=== PATIENT | female | born 2000 | race Caucasian/White ===

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

== ENCOUNTER 2022-02-14 19:58 | Outpatient (CLI) | payer BC ==
[~2022-02-14] VITALS: Ht 167.6 cm; Wt 78.6 kg
[~2022-02-14 19:58] MED LIST: CEPHALEXIN500 M1 PO
--- NOTE | 2022-02-14 20:00 | NUR ---
1999- PT PRESENTS TO LDR FOR COMPLAINTS OF CONTRACTIONS. TO LR5 PER WHEELCHAIR, CHANGED INTO GOWN. 2003- EFM X2 APPLIED. PT DENIES LEAKING FLUID OR VAGINAL BLEEDING. STATES SHE IS FEELING BABY MOVE. STATES SHE HAS BEEN HAVING SOME CONTRACTIONS FOR THE LAST DAY OR SO, BUT BECAME MORE PAINFUL THIS EVENING. DISCUSSED PLAN OF CARE FOR LABOR CHECK AND QUESTIONS ANSWERED. 2015- SVE BY THIS NURSE 0-09/03/3. PT TOLERATED WELL. DISCUSSED PT DRINKING SOME WATER, WATCHING CTX ON MONITOR AND RECHECKING CERVIX. PT OK WITH THIS PLAN OF CARE. ORAL HYDRATION PROVIDED.
[2022-02-14 20:25] VITALS: BP 129/75; PULSE 63; TEMP 98
--- NOTE | 2022-02-14 20:41 | NUR ---
@2038 RN ASSISTED PT TO THE BATHROOM AND BACK TO THE BED. MALE VISITOR IS AT THE BEDSIDE. PT AAOX4 WITH NO APPARENT SIGN OF DISTRESS. RN GAVE REPORT TO CHARGE NURSE KUN.
--- NOTE | 2022-02-14 21:46 | NUR ---
RECHECK SVE NO CHANGE IN CERVIX. DR HARO NOTIFIED OF PT'S COMPLAINTS, UC'S, NO CERVICAL CHANGE,VS STABLE. ORDERS TO DC TO HOME WITH INSTRUCTIONS TO ORALLY HYDRATE WELL, TYLENOL AND BENEDRYL PRN, PT MAY TAKE WARM SHOWERS. KEEP YOUR NEXT APPOINTMENT SCHEDULED. PT VERBLAIZED UNDERSTANDING. SHE WAS GIVEN VERBAL AND WRITTEN INSTRUCTIONS. ON DISCOMFORTS OF , TO RETURN IF SROM, VAG BLEEDING MORE THAN SPOTTING, REGULAR STRONG UC'S PT VERBALIZED UNDERSTANDING. SHE WAS STABLE AND AMB OFF THE UNIT WITH HER S.O.
== END 2022-02-14 21:45 | disposition home or self-care (01) ==
LOC: LDRO 19:58 → LDR 20:40 → LDRO 21:45
DX: O62.9 Abnormality of forces of labor, unspecified (principal); Z3A.36 36 weeks gestation of pregnancy
CPT/HCPCS: OP

== ENCOUNTER 2022-03-04 09:52 | Inpatient (IN) | payer BC ==
[~2022-03-04] VITALS: Ht 167.6 cm; Wt 80.0 kg
[2022-03-04] VITALS (56 sets, daily range): BP systolic 96–194; BP diastolic 50–87; PULSE 59–101; TEMP 97.6–98.7
--- NOTE | 2022-03-04 10:00 | NUR ---
Admits to L&D for reported SROM @ 0100, clear fluid. Sent over from office for augmentation of labor, as noted patient remains 1 cm dilated per . Patient reports she has had some contractions, but nothing regular. Denies any odor to fluid upon rupture of membranes. Ambulatory to unit, accompanied by significant other. Placed on EFM by GUEVARA Guadalupe.
--- NOTE | 2022-03-04 10:30 | NUR ---
1020- Bedside report from GUEVARA Castaneda. This RN assumes care at this time.
[2022-03-04] MEDS ORDERED: NATURAL IRON65 MG (10:34)
[2022-03-04] MEDS ORDERED: MAGNESIUM250 M1 PO (10:35)
[2022-03-04] MEDS ORDERED: PRENATAL TABLET PO (10:35)
[2022-03-04 10:57] LABS: HEMOGLOBIN 12.8 g/dl (12.5-16.0); MEAN CELL VOLUME 91 fl (80.0-100.0); MEAN CORPUSCULAR HEMOGLOBIN 32 pg (27-31); MEAN CORPUSCULAR HGB CONC 35 g/dl (33.0-37.0); MEAN PLATELET VOLUME 10.2 fl (7.4-10.4); PLATELET COUNT 224 K/mm3 (130-400); RED BLOOD COUNT 4.05 M/mm3 (4.10-5.30); REDCELL DISTRIBUTION WIDTH-CV 13.7 % (11.5-14.5)
[2022-03-04 10:59] LABS: HEMATOCRIT 36.7 % (37.0-47.0)
--- NOTE | 2022-03-04 11:00 | NUR ---
1042- EFM and TOCO off. Pt up to void and ambulate in hallway. Pt and Spouse given tour of unit by this RN. 1059- EFM and TOCO on and tracing. Pt assited onto birthing ball. Pitocin started per policy.
[2022-03-04 11:29] LABS: BAND 3 % (0-10); LYMPHOCYTE 19 % (20.0-51.0); NEUTROPHILS 73 % (42.0-75.2); PLATELET ESTIMATE NORMAL (NORMAL)
--- NOTE | 2022-03-04 12:00 | NUR ---
Pt independently transitions between birthing ball and standing at bedside. UCs not tracing well due to maternal position.
--- NOTE | 2022-03-04 13:45 | NUR ---
1335- Dr Reynolds and this RN at bedside, SVE by , /-2, forebag AROM by MD with amniohook, moderate amount of clear fluid noted. Pt tolerated well.
--- NOTE | 2022-03-04 15:00 | NUR ---
1443- Sridhar.ARIEL Paul at bedside. Pt assisted to sitting on side of bed for epidural placement. O2 sat on and tracing maternal HR. 1451- Test dose, see anesthesia record. 1457- Pt repositioned to LL, O2 sat monitor off. US adjusted.
--- NOTE | 2022-03-04 19:39 | NUR ---
@191 RN and charge GUEVARA Magana reveiwed the strip. 300cc bolus of LR administering IV. @1930 Dr. Ferrell was made aware and 2g Ancef q6 was ordered.
[2022-03-05] VITALS (17 sets, daily range): BP systolic 91–145; BP diastolic 52–80; PULSE 62–86; TEMP 97.8–98.4
--- NOTE | 2022-03-05 03:48 | NUR ---
@0250 RN completed a SVE /+2 @[address] Ferrell to come to the bedside for delivery. @0310 arrived. @0328 baby was delivered.
--- NOTE | 2022-03-05 05:44 | NUR ---
@0540 Patient transferred to via wheelchair and ambulated to the bathroom in her assisgned room to urinate and tolerated it well.
[2022-03-05] MEDS ORDERED: IBU800 M1 PO (08:29)
--- NOTE | 2022-03-05 09:00 | NUR ---
Initial visit; Patient, and family thanked Geophysical Prospecting Permit Agent for offering congratulations and God's blessings for the of their son. Geophysical Prospecting Permit Agent thanked Rin for choosing [facility].
[2022-03-06 00:01] VITALS: BP 108/62; PULSE 72; TEMP 98.2
[2022-03-06 07:30] VITALS: BP 110/70; PULSE 65; TEMP 98.2
--- NOTE | 2022-03-06 11:00 | NUR ---
1100-Reviewed discharge instructions with patient. Denies any questions. Aware of need to follow up at six week visit. 1115-Ambulatory off unit with infant and spouse.
== END 2022-03-06 11:11 | disposition home or self-care (01) | DRG 807 ==
LOC: OB 09:52 → LDR 09:52 → OB 03-05 05:45
PROVIDERS: ADMIT Student in an Organized Health Care Education/Training Program
PROC: 10E0XZZ Delivery of Products of Conception, External Approach (ICD-10-PCS; principal; 2022-03-05)
DX: O99.52 Diseases of the respiratory system complicating childbirth (principal); Z37.0 Single live birth; J45.909 Unspecified asthma, uncomplicated; O99.02 Anemia complicating childbirth; D64.9 Anemia, unspecified; O26.03 Excessive weight gain in pregnancy, third trimester; O35.8XX0 Maternal care for other (suspected) fetal abnormality and damage, not applicable or unspecified; O71.82 Other specified trauma to perineum and vulva; Z3A.39 39 weeks gestation of pregnancy; Z86.16 Personal history of COVID-19
CPT/HCPCS: J0690; J2405; J2590; J7120

== ENCOUNTER 2023-07-16 09:08 | Inpatient (IN) | payer BC ==
[~2023-07-16] VITALS: Ht 167.6 cm; Wt 79.3 kg
[2023-07-16] VITALS (33 sets, daily range): BP systolic 92–152; BP diastolic 51–82; PULSE 56–80; TEMP 97.3–98.2
--- NOTE | 2023-07-16 09:05 | NUR ---
PT AMBULATORY TO UNIT WITH FOB. ORIENTED TO LABOR ROOM AND PLAN OF CARE. DENIES CONTRACTIONS, DENIES LOF/VB, REPORTS POSITIVE MOVEMENT. CATEGORY 1 EFM TRACING UPON ARRIVAL. TOCO TRACING IRREGULAR CONTRACTIONS, MILD WIT PALPATION AND PT DENIES PAIN WITH THEM. UPDATED OF PT ARRIVAL.
[~2023-07-16 09:08] MED LIST changes: +IBU800 M1 PO; +MAGNESIUM250 M1 PO; +MELATONIN5 M1 SL; +NATURAL IRON65 MG; +PRENATAL TABLET PO; +VITAMIN B COMPL1 SGL PO; +VITAMIN D250 MCG PO
[2023-07-16 09:55] LABS: BASO % 0.4 % (0.0-2.0); EOS # 0.1 K/mm3 (0.0-0.7); EOS % 0.5 % (0.0-4.0); GRAN % 74.8 % (42.2-75.2); HEMOGLOBIN 12.5 g/dl (12.5-16.0); LYMPH # 1.5 K/mm3 (1.2-3.4); LYMPH % 15.7 % (20.0-51.0); MEAN CELL VOLUME 91 fl (80.0-100.0); MEAN CORPUSCULAR HEMOGLOBIN 32 pg (27-31); MEAN CORPUSCULAR HGB CONC 35 g/dl (33.0-37.0); MEAN PLATELET VOLUME 10.2 fl (7.4-10.4); MONO # 0.7 K/mm3 (0.1-0.6); MONO % 7.2 % (1.7-9.3); PLATELET COUNT 193 K/mm3 (130-400); RED BLOOD COUNT 3.95 M/mm3 (4.10-5.30); REDCELL DISTRIBUTION WIDTH-CV 13.8 % (11.5-14.5)
[2023-07-16 10:01] LABS: HEMATOCRIT 36.1 % (37.0-47.0)
--- NOTE | 2023-07-16 10:16 | NUR ---
AT BEDSIDE. SVE /-2. AROM @ 1016 WITH CLEAR FLUID PER , PT TOLERATED PROCEDURE WELL.
--- NOTE | 2023-07-16 11:10 | NUR ---
SHELBY TELESCOPE OPERATOR AT BEDSIDE. PT TO SITTING POSITION FOR EPIDURAL PLACEMENT. DIFFICULTY TRACING EFM DUE TO MATERNAL POSITIONING. 1110: TEST DOSE PER SHELBY, PT TOLERATED PROCEDURE WELL. MATERNAL VITAL SIGNS STABEL THROUGHOUT.
--- NOTE | 2023-07-16 11:50 | NUR ---
PT C/O SEVERE LEFT LOWER QUADRANT PAIN WITH CONTRACTIONS FOLLOWING EPIDURAL DOSE AT 1110. TEARFUL AND UNABLE TO BREATHE THROUGH CONTRACTIONS. THIS RN AND PT HAVE PUSHED EPIDURAL PILE DRIVER ENGINEER BUTTON X2, NO RELIEF. SHELBY AT BEDSIDE. REPOSITIONS CATHETER AND ADMINISTERS EXTRA MEDICATION, SEE ANESTHESIA RECORD. PT BEGINS TO FEEL RELIEF. LR BOLUS INFUSING. PT BECOMES HYPOTENSIVE, EPHEDRINE ADMINISTERED X2 BY THIS RN. PT STATES SHE "FEELS LESS LIGHT HEADED AND NAUSEOUS" FOLLOWING EPHEDRINE. PT REPORTS ZERO PAIN WITH CONTRACTIONS AND BEGINS TO FALL ASLEEP. 1230: DELONG PLACED WITH CLEAR YELLOW URINE RETURN. PT PLACED IN LEFT LATERAL POSITION WITH PEANUT BALL TO RECOVER AND REST. DENIES FURTHER NEEDS AT THIS TIME.
--- NOTE | 2023-07-16 15:58 | NUR ---
1558: PT COMPLETE/+2 STATION. UNABLE TO FEEL PRESSURE OR URGE TO PUSH DUE TO RECENT EPIDURAL DOSING. SEE ANESTHESIA RECORD. AND ALL APPROPRIATE STAFF NOTIFIED OF PENDING DELIVERY. 1615: OF VIABLE FEMALE INFANT AT THIS TIME PER . PLACED ON MATERNAL ABDOMEN. CORD CLAMPED X2 UPON COMPLETION OF CORD PULSATION AND CUT BY FOB. CARE OF INFANT ASSUMED BY GUEVARA SÁNCHEZ. STRONG CRY NOTED AT DELIVERY. LOCHIA WNL AT THIS TIME. MATERNAL VITAL SIGNS STABLE. 1619: OF INTACT PLACENTA PER . PITOCIN BOLUS INFUSING. LR BOLUS INFUSING. MODERATE LOCHIA WITH SMALL CLOTS NOTED. FUNDUS FIRM AT UMBILICUS WITH MASSAGE. BLEEDING BEGINS TO SLOW. PERINEUM INTACT, NO SUTURES NEEDED. MATERNAL VITAL SIGNS REMAIN STABLE. WILL CONTINUE WITH PLAN OF CARE.
[2023-07-17 01:23] VITALS: BP 117/67; PULSE 82; TEMP 97.9
[2023-07-17 07:00] VITALS: BP 103/60; PULSE 70; TEMP 97.8
[2023-07-17 13:00] VITALS: BP 110/62; PULSE 70; TEMP 98.6
--- NOTE | 2023-07-17 17:30 | NUR ---
PT DECIDES TO STAY ADMITTED DUE TO BABY NEEDING PHOTOTHERAPY.
[2023-07-17 19:55] VITALS: BP 107/71; PULSE 71; TEMP 98.1
--- NOTE | 2023-07-18 09:29 | NUR ---
Initial visit; Parents thanked Route Sales Associate for offering congratulations and God's blessings for the of their son. Route Sales Associate thanked family for choosing our hospital. was pleased to hear that their care while here with us has been "wonderful."
== END 2023-07-18 18:20 | disposition home or self-care (01) | DRG 807 ==
LOC: LDR 09:08 → OB 17:36
PROVIDERS: ADMIT Student in an Organized Health Care Education/Training Program
PROC: 10E0XZZ Delivery of Products of Conception, External Approach (ICD-10-PCS; principal; 2023-07-16)
PROC: 10907ZC Drainage of Amniotic Fluid, Therapeutic from Products of Conception, Via Natural or Artificial Opening (ICD-10-PCS; 2023-07-16)
PROC: 3E033VJ Introduction of Other Hormone into Peripheral Vein, Percutaneous Approach (ICD-10-PCS; 2023-07-16)
DX: O99.824 Streptococcus B carrier state complicating childbirth (principal); Z37.0 Single live birth; O99.344 Other mental disorders complicating childbirth; Z3A.39 39 weeks gestation of pregnancy; J45.909 Unspecified asthma, uncomplicated; O99.52 Diseases of the respiratory system complicating childbirth
CPT/HCPCS: J2405; J2540; J2590; J2795; J3010; J7120